=== PATIENT | male | born 1955 | race Caucasian/White ===

== ENCOUNTER → 2019-02-26 | Outpatient (CLI) | payer OTHER ==
[~2019-02-26] VITALS: Ht 180.3 cm; Wt 95.3 kg
[~2019-02-26] MED LIST: AZELASTINE137 MCG/0.; COREG25 MG PO; DEMADEX20 MG PO; DIOVAN320 MG PO; FLONASE 0.05%50 MCG NASAL; NORVASC5 MG PO; PROTONIX40 M1 PO
[2019-02-26 07:34] VITALS: BP 140/72
--- NOTE | 2019-02-26 08:06 | EKG ---
[place] [address] [facility] [place] [address] ELECTROCARDIOGRAM REPORT Name: ESPERANZA ORTIZ Room #: REG CLI [facility]#: [id number] ������������������ Admission: 02/26/19 ������������������ Attend Phys: Martin Asher MD, Discharge: ������������������ Date of : 57 Report #: [id number] ����������������������������������������������������������������� [id number] THIS REPORT FOR: //name// [facility] Test Date: 2019-02-26 Test Time: 07:25:47 Pat Name: ESPERANZA ORTIZ Department: Room: Gender: Director Of Quality Control: Debora QUICK : 1955 Requested By: Martin Asher Order Number: [id number] MD: Martin Asher Measurements Intervals Valders Rate: 71 P: 6 IA: 154 QRS: 46 QRSD: 100 T: 5 QT: 389 QTc: 423 Interpretive Statements Sinus rhythm No significant abnormality No previous ECG available for comparison Electronically Signed On 02-26-2019 8:06:25 CDT by Martin Asher [email or web address] ��������������������������������������������� <ELECTRONICALLY SIGNED> ���������������������������������������� By: Martin Asher MD, [facility] ��������������������������������������������� 02/26/19 0806 0725 0725 Martin Asher MD, FACC /EPI
--- NOTE | 2019-02-26 09:09 | CATHLAB ---
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 A PINNACLE 6FR Sheath #[id number] sheath was inserted into the RFA 6F^. Coronary angiography was performed using coronary diagnostic catheters. The right coronary system was accessed and visualized with a jr4 catheter. The left coronary system was accessed and visualized with a jl4 catheter. The left ventricle was accessed and visualized with a angle pig catheter. Left ventriculogram was performed in 30 degree projection. The patient tolerated the procedure well and there were no complications associated with the procedure. Intraoperative Conscious Sedation Sedation start time: 811 Case end Time: 834 Fentanyl 100 mcg Versed 1.5 mg Fluoro Time: 1.32 minutes Dose: DAP 4835.20 cGycm2 554 mGy Contrast Type and Amount: Omnipaque 105 ml [facility] [place] [address] INVASIVE PROCEDURE REPORT Name: ESPERANZA ORTIZ Room #: [facility] [id number] ������������� Admission: 02/26/19 ������������� Attend Phys: Martin Asher, Discharge: ��� ������������� ��� Date of : 57 Date of Service: 02/26/19 0908 �� Report #: [id number] �������� ��������������������������������������������[id number] Coronary Angiography The patient's coronary anatomy is right dominant. Diagnostic Cath Left Main Mild 10% distal left main plaquing LAD Normal left anterior descending. Diagonal 1 Large trifurcating first diagonal branch, angiographically normal Circumflex Large, nondominant circumflex comprised of three marginal branches OM1 Normal first marginal branch OM2 Normal second marginal branch OM3 Normal third marginal branch Right Coronary Large, dominant right coronary, angiographically normal R PDA Large posterior descending branch, angiographically normal RPLV Large posterior lateral branch, angiographically normal Left Ventriculography The left ventricle is normal in size with abnormal global contractility. The left ventricular ejection fraction is estimated to be 45-50%. Left ventricular wall motion abnormalities are not present. There is no mitral insufficiency. Hemodynamics The aortic pressure is 136/52 mmHg with a mean of 88 mmHg. The left ventricular pressure is 135/2 mmHg with a mean of mmHg. The left ventricular end diastolic pressure is 38 mmHg. Conclusion 1. Global and regional left ventricular systolic function at the lower limits of normal. Ejection fraction 45-50% 2. Minimal distal left main plaquing 3. Normal LAD, circumflex, and dominant right coronary Recommendations Smoking Cessation Aggressive Medical Therapy ��������������������������������������������� <ELECTRONICALLY SIGNED> ���������������������������������������� By: Martin Asher MD, FACC ��������������������������������������������� 02/26/19907 7 7 Martin Asher MD, FACC /INF
== END | disposition home or self-care (01) ==
LOC: CATH 07:03
DX: I25.10 Atherosclerotic heart disease of native coronary artery without angina pectoris (principal); I11.0 Hypertensive heart disease with heart failure; I50.9 Heart failure, unspecified; E78.5 Hyperlipidemia, unspecified; J44.9 Chronic obstructive pulmonary disease, unspecified; M19.90 Unspecified osteoarthritis, unspecified site; F17.210 Nicotine dependence, cigarettes, uncomplicated; Z82.49 Family history of ischemic heart disease and other diseases of the circulatory system; Z79.899 Other long term (current) drug therapy; Z98.890 Other specified postprocedural states; Z86.19 Personal history of other infectious and parasitic diseases